=== PATIENT | female | born 1980 | race American Indian/Alaskan Native ===

== ENCOUNTER 2018-03-19 08:25 | Emergency (ER) | payer MEDICAID, OTHER ==
[2018-03-19 08:33] VITALS: BP 135/86
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
--- NOTE | 2018-03-19 10:08 | XRay Report ---
Left humerus 2 views: History: Left shoulder pain. Status post work injury. Findings: No fracture, lytic lesion or periosteal reaction or soft tissue calcification. Impression: Essentially negative left humerus.
--- NOTE | 2018-03-19 10:10 | XRay Report ---
Cervical spine 4 views: X. History: Status post work injury. Neck pain. Findings: Normal height of vertebral bodies. Normal height of intervertebral disc spaces. Sclerotic articular surfaces with early cervical spondylosis. No fracture. Normal prevertebral soft tissue. Impression: No evidence of acute fracture.
== END 2018-03-19 10:57 | disposition home or self-care (01) ==
LOC: ED 08:25
DX: S46.812A Strain of other muscles, fascia and tendons at shoulder and upper arm level, left arm, initial encounter (principal); J45.909 Unspecified asthma, uncomplicated; F17.200 Nicotine dependence, unspecified, uncomplicated; W20.8XXA Other cause of strike by thrown, projected or falling object, initial encounter; Y93.89 Activity, other specified; Y92.69 Other specified industrial and construction area as the place of occurrence of the external cause; Y99.8 Other external cause status
CPT/HCPCS: 72040; 99283

== ENCOUNTER 2019-01-01 10:19 | Emergency (ER) | payer SELFPAY ==
[2019-01-01 10:23] VITALS: BP 132/78
--- NOTE | 2019-01-01 10:39 | Emergency Department Report ---
ED Lower Extremity HPI - General Chief Complaint: Extremity Injury, Lower Stated Complaint: RT KNEE PAIN Time Seen by Provider: 01/01/19 10:33 Source: patient Mode of arrival: Ambulatory Limitations: Physical Limitation - History of Present Illness Initial Comments: Patient is a 38-year-old -Surinamese female who comes to the ER today with right knee pain. Her knee has hurt since yesterday. She states that she bent over and squatted to pick something up and when she stood up she had pain and swelling of the knee. She is ambulatory but with a limp. There is no other fall or trauma. She has never had this in the past. She is on no home medications. And denies any major medical problems. Patient reports an allergy to aspirin but she has taken Motrin numerous times here in the emergency room in the past. MD Complaint: knee injury -: Sudden, days(s) Injury: Knee: Right Place: home Severity: mild Improves With: nothing Worsens With: nothing Context: other (squat) Associated Symptoms: swelling - Related Data Previous Rx's Medication Instructions Recorded Last Taken Type Naproxen [Naprosyn] 500 mg PO BID PRN #20 tablet 01/01/19 Unknown Rx traMADol [Ultram] 50 mg PO Q6HR PRN #10 tablet 01/01/19 Unknown Rx Allergies Allergy/AdvReac Type Severity Reaction Status Date / Time aspirin Allergy Rash Verified 01/01/19 10:20 Penicillins Allergy Rash Verified 01/01/19 10:20 ED Review of Systems ROS: Stated complaint: RT KNEE PAIN Other details as noted in HPI Comment: All other systems reviewed and negative Constitutional: denies: see HPI Eyes: denies: eye pain ENT: denies: throat pain Respiratory: denies: cough Cardiovascular: denies: chest pain Endocrine: denies: intolerance to cold Gastrointestinal: denies: nausea Genitourinary: denies: as per HPI Musculoskeletal: as per HPI Skin: denies: rash Neurological: denies: headache Psychiatric: denies: depression Hematological/Lymphatic: denies: easy bleeding ED Past Medical Hx - Past Medical History Hx Asthma: Yes Additional medical history: Leukemia in remission,cancer survivor - Surgical History Additional Surgical History: port placed/removed - Family History Family history: no significant - Social History Smoking Status: Never Smoker Substance Use Type: Alcohol - Medications Home Medications: Home Medications Medication Instructions Recorded Confirmed Last Taken Type Naproxen [Naprosyn] 500 mg PO BID PRN #20 tablet 01/01/19 Unknown Rx traMADol [Ultram] 50 mg PO Q6HR PRN #10 tablet 01/01/19 Unknown Rx ED Physical Exam - General Limitations: Physical Limitation General appearance: alert - Head Head exam: Present: atraumatic - Eye Eye exam: Present: normal appearance, PERRL - Neck Neck exam: Present: normal inspection - Respiratory Respiratory exam: Present: normal lung sounds bilaterally - Cardiovascular Cardiovascular Exam: Present: regular rate - GI/Abdominal GI/Abdominal exam: Present: soft, normal bowel sounds - Rectal Rectal exam: Present: deferred - Extremities Exam Extremities exam: Present: normal inspection, full ROM - Expanded Lower Extremity Exam Right Upper Leg exam: Present: normal inspection Knee exam: Present: tenderness, swelling, effusion, full knee extension. Absent: abrasion, laceration, ecchymosis, deformity, crepidus, dislocation, erythema, pain w/ pronation/supination, posterior draw sign, pain/laxity with valgus, pain/laxity with varus Lower Leg exam: Present: normal inspection Neuro vascular tendon exam: Present: no vascular compromise Gait: Positive: observed and limited by pain - Back Exam Back exam: Present: normal inspection, full ROM - Neurological Exam Neurological exam: Present: alert, oriented X3, CN II-XII intact, normal gait - Psychiatric Psychiatric exam: Present: normal affect, normal mood - Skin Skin exam: Present: warm, dry, intact ED Course Vital Signs 01/01/19 10:22 Temperature 97.8 F Pulse Rate 89 Respiratory 18 Rate Blood Pressure 132/78 O2 Sat by Pulse 97 Oximetry ED Lower Extremity MDM - Radiology Data Radiology results: report reviewed, image reviewed - Medical Decision Making r knee effusion p squatting no fall or blunt trauma no bakers cyst ambulatory w limp pos effusion on exam. generalized swelling. RLE neurovasc intact Vss no lac or abrasion/ concern for septic knee/ infection knee immob and crutches to dec inflammation follow up with ortho nsaids for pain/comfort - Differential Diagnosis ro fx/ effusion Critical care attestation.: If time is entered above; I have spent that time in minutes in the direct care of this critically ill patient, excluding procedure time. ED Disposition Clinical Impression: Knee effusion, Knee pain Disposition: DC- TO HOME OR SELFCARE Is pt being admited?: No Does the pt Need Aspirin: No Condition: Stable Instructions: Knee Effusion (ED) Additional Instructions: knee immbolizer crutches follow up ortho next week referral below rest elevate med as ordered for inflammation Prescriptions: Naproxen [Naprosyn] 500 mg PO BID PRN #20 tablet PRN Reason: Pain traMADol [Ultram] 50 mg PO Q6HR PRN #10 tablet PRN Reason: Pain Referrals: PRIMARY CAREMD [Primary Care Provider] - 3-5 Days HENRY MARTINS MD [Staff Physician] - 3-5 Days Forms: Work/School Release Form(ED) Time of Disposition: 11:29
[2019-01-01] MEDS ORDERED: TORADOL IM ONE (11:28)
--- NOTE | 2019-01-01 11:30 | XRay Report ---
RIGHT KNEE, 3 views: History: Right knee pain. A small joint effusion is identified on the lateral image. The bony structures and joint spaces are unremarkable. IMPRESSION: Small knee effusion. Internal derangement is suspected, MRI could be obtained.
== END 2019-01-01 12:01 | disposition home or self-care (01) ==
LOC: ED 10:19
DX: M25.461 Effusion, right knee (principal); J45.909 Unspecified asthma, uncomplicated; Z88.6 Allergy status to analgesic agent; Z88.0 Allergy status to penicillin
CPT/HCPCS: 29505; 73562; 96372; 99283; J1885

== ENCOUNTER 2019-05-30 08:40 | Emergency (ER) | payer OTHER ==
[2019-05-30 09:03] VITALS: BP 140/91
[2019-05-30] MEDS ORDERED: TORADOL IM ONE (10:01)
[2019-05-30] MEDS ORDERED: DELTASONE PO ONE (10:01)
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
== END 2019-05-30 11:13 | disposition home or self-care (01) ==
LOC: ED 08:40
DX: S16.1XXA Strain of muscle, fascia and tendon at neck level, initial encounter (principal); J45.909 Unspecified asthma, uncomplicated; F17.200 Nicotine dependence, unspecified, uncomplicated; F12.10 Cannabis abuse, uncomplicated; Z88.6 Allergy status to analgesic agent; Z88.0 Allergy status to penicillin; W13.8XXA Fall from, out of or through other building or structure, initial encounter; Y93.89 Activity, other specified; Y92.59 Other trade areas as the place of occurrence of the external cause; Y99.8 Other external cause status
CPT/HCPCS: 96372; 99282; J1885; J7512

== ENCOUNTER 2019-09-02 09:08 | Emergency (ER) | payer OTHER ==
[2019-09-02 09:12] VITALS: BP 116/72
[2019-09-02] MEDS ORDERED: TORADOL IM ONE (09:33)
[2019-09-02] MEDS ORDERED: TORADOL ONE (09:36)
--- NOTE | 2019-09-02 09:39 | Emergency Department Report ---
ED Back Pain/Injury HPI - General Chief Complaint: Back Pain/Injury Stated Complaint: BACK PAIN EXTREME Time Seen by Provider: 09/02/19 09:33 Source: patient Limitations: No Limitations - History of Present Illness Initial Comments: Patient is 38 years old female with history of chronic back pain secondary to degenerative disc disease. Patient presented to the ER with acute exacerbation of her lower back pain. Patient denied any recent injury. She also denied any fever, weakness numbness or tingling sensation. No bowel or bladder incontinence. MD Complaint: back pain -: days(s) Similar Symptoms Previously: Yes Radiation: none - Related Data Previous Rx's Medication Instructions Recorded Last Taken Type Naproxen [Naprosyn] 500 mg PO BID PRN #20 tablet 01/01/19 Unknown Rx traMADol [Ultram] 50 mg PO Q6HR PRN #10 tablet 01/01/19 Unknown Rx Cyclobenzaprine [Flexeril] 10 mg PO QHS PRN #10 tablet 05/30/19 Unknown Rx Ibuprofen [Motrin] 600 mg PO Q8H PRN #20 tablet 05/30/19 Unknown Rx Allergies Allergy/AdvReac Type Severity Reaction Status Date / Time aspirin Allergy Rash Verified 01/01/19 10:20 Penicillins Allergy Rash Verified 01/01/19 10:20 ED Review of Systems ROS: Stated complaint: BACK PAIN EXTREME Other details as noted in HPI Comment: All other systems reviewed and negative Constitutional: denies: chills, fever Respiratory: denies: cough, shortness of breath, SOB with exertion Cardiovascular: denies: chest pain, palpitations Gastrointestinal: denies: abdominal pain, nausea, vomiting Musculoskeletal: back pain Neurological: denies: headache, weakness, numbness, paresthesias, confusion, abnormal gait, vertigo ED Past Medical Hx - Past Medical History Previous Medical History?: Yes Hx Asthma: Yes Additional medical history: Leukemia in remission,cancer survivor - Surgical History Past Surgical History?: Yes Additional Surgical History: port placed/removed - Social History Smoking Status: Never Smoker Substance Use Type: None - Medications Home Medications: Home Medications Medication Instructions Recorded Confirmed Last Taken Type Naproxen [Naprosyn] 500 mg PO BID PRN #20 tablet 01/01/19 Unknown Rx traMADol [Ultram] 50 mg PO Q6HR PRN #10 tablet 01/01/19 Unknown Rx Cyclobenzaprine [Flexeril] 10 mg PO QHS PRN #10 tablet 05/30/19 Unknown Rx Ibuprofen [Motrin] 600 mg PO Q8H PRN #20 tablet 05/30/19 Unknown Rx ED Physical Exam - General Limitations: No Limitations General appearance: alert, in no apparent distress - Head Head exam: Present: atraumatic, normocephalic, normal inspection - Eye Eye exam: Present: normal appearance - ENT ENT exam: Present: normal exam, normal orophraynx, mucous membranes moist - Neck Neck exam: Present: normal inspection, full ROM. Absent: tenderness, meningismus, lymphadenopathy, thyromegaly - Respiratory Respiratory exam: Present: normal lung sounds bilaterally - Cardiovascular Cardiovascular Exam: Present: regular rate, normal rhythm, normal heart sounds - GI/Abdominal GI/Abdominal exam: Present: soft. Absent: distended, tenderness - Extremities Exam Extremities exam: Present: normal inspection, full ROM, normal capillary refill. Absent: tenderness - Back Exam Back exam: Present: normal inspection, full ROM. Absent: tenderness, CVA tenderness (R), CVA tenderness (L), muscle spasm, paraspinal tenderness, vertebral tenderness - Neurological Exam Neurological exam: Present: alert, oriented X3, CN II-XII intact, normal gait. Absent: abnormal gait, motor sensory deficit - Psychiatric Psychiatric exam: Present: normal mood - Skin Skin exam: Present: warm, intact, normal color ED Course Vital Signs 09/02/19 09:10 Temperature 98.0 F Pulse Rate 65 Respiratory 16 Rate Blood Pressure 116/72 O2 Sat by Pulse 100 Oximetry Critical care attestation.: If time is entered above; I have spent that time in minutes in the direct care of this critically ill patient, excluding procedure time. ED Disposition Clinical Impression: Back pain Disposition: DC-01 TO HOME OR SELFCARE Is pt being admited?: No Condition: Stable Instructions: Back Pain (ED) Referrals: [facility] [Provider Group] - 3-5 Days
== END 2019-09-02 09:47 | disposition home or self-care (01) ==
LOC: ED 09:08
DX: M54.5 Low back pain (principal); G89.29 Other chronic pain; J45.909 Unspecified asthma, uncomplicated; Z88.0 Allergy status to penicillin; Z88.6 Allergy status to analgesic agent; Z79.899 Other long term (current) drug therapy
CPT/HCPCS: 96372; 99282; J1885

== ENCOUNTER 2019-10-29 22:49 | Inpatient (IN) | payer OTHER ==
[2019-10-30 02:49] LABS: Bacteria,Urine 1+ /HPF (Negative); Bilirubin,Urine NEG (Negative); Blood,Urine SM (Negative); Color,Urine Yellow (Yellow); Mucus,Urine FEW /HPF; Protein,Urine <15 mg/dL mg/dL (Negative); Urobilinogen,Urine < 2.0 mg/dL (<2.0)
[2019-10-30 03:25] LABS: Basophils % (Auto) 0.2 % (0.0-1.8); Eosinophils % (Auto) 0.1 % (0.0-4.3); Hematocrit 37.5 % (30.3-42.9); Hemoglobin 13.1 gm/dl (10.1-14.3); Lymphocytes % (Auto) 17.9 % (13.4-35.0); Mean Corpuscular HGB Conc 35 % (30-34); Mean Corpuscular Volume 96 fl (79-97); Monocytes # (Auto) 0.6 K/mm3 (0.0-0.8); Platelet Count 159 K/mm3 (140-440); Red Blood Count 3.91 M/mm3 (3.65-5.03); Red Cell Distribution Width 13.1 % (13.2-15.2)
[2019-10-30 03:48] LABS: Alanine Aminotransferase 18 units/L (7-56); Albumin 4.5 g/dL (3.9-5); BUN/Creatinine Ratio 13; Blood Urea Nitrogen 8 mg/dL (7-17); Calcium 9.4 mg/dL (8.4-10.2); Hemolysis Index 9
[2019-10-30] MEDS ORDERED: MORPHINE 4 MG/1 ML INJ IV ONE (04:26)
[2019-10-30] MEDS ORDERED: ONDANSETRON 4 MG/2 ML INJ IV ONE ×2 (04:26→06:30)
[2019-10-30] MEDS ORDERED: SODIUM CHLORIDE 0.9% 1000 ML 1,000 ML IV ONE ×2 (04:27→06:30)
--- NOTE | 2019-10-30 05:52 | Cat Scan Report ---
CT of the abdomen and pelvis with contrast INDICATION: Abdominal pain with nausea and vomiting COMPARISON: None FINDINGS: Lung bases are clear. Liver, spleen, pancreas, adrenal glands and kidneys show no abnormali ties. No definite gallbladder or biliary tree abnormality. No fluid or adenopathy in the upper abdome n. CT of the pelvis shows an umbilical hernia containing fat. No uterine or adnexal masses. No free pelv ic fluid. The tip the appendix contains an appendicolith or linear foreign body and is enlarged at 1. 5 cm. There is no definite surrounding inflammation however. No perforation is seen. No pelvic or ing uinal adenopathy. No bowel obstruction or enteritis. IMPRESSION: Thickened appendix without surrounding inflammation so the finding is equivocal. Otherwis e negative study. Automated exposure control was utilized to diminish radiation dose. Signer Name: Gary Schwartz MD Signed: 10/30/2019 5:47 AM Workstation Name: [id number]
--- NOTE | 2019-10-30 06:17 | Emergency Department Report ---
<DEMETRIA HILL - Last Filed: 10/30/19 06:13> ED Abdominal Pain HPI - General Chief Complaint: Abdominal Pain Stated Complaint: FEVER; ABD PAIN Source: patient Mode of arrival: Ambulatory Limitations: No Limitations - History of Present Illness Initial Comments: Patient is a 39-year-old [place] female with a remote history of acute myelogenous leukemia in remission who presents to the ED with no acute onset persistent severe right lower quadrant pain with nausea and vomiting and subjective fever and chills for the last 2 days. Patient states that she'll been taking [id number] medications with no relief. Patient denies dizziness, syncope, dysuria, urinary frequency and urgency, chest pain, shortness of breath, vaginal bleeding, vaginal discharge, back pain, hematuria, or cough and syncope MD Complaint: abdominal pain, other (nausea and vomiting; fever and chills) -: Sudden, days(s) (2) Location: RLQ Radiation: RLQ Migration to: no migration Severity: severe Severity scale (0 -10): 10 Quality: aching, sharp Consistency: intermittent Improves With: nothing Worsens With: movement Associated Symptoms: denies other symptoms, nausea, vomiting, anorexia. denies: diarrhea, fever, chills, constipation, dysuria, hematemesis, hematochezia, melena, hematuria, syncope Treatments Prior to Arrival: NSAIDs - Related Data LMP Date: 10/26/19 Previous Rx's Medication Instructions Recorded Last Taken Type Cyclobenzaprine [Flexeril 10 MG 10 mg PO QHS PRN #10 tablet 05/30/19 Unknown Rx TAB] Docusate Sodium [Colace] 100 mg PO BID PRN #14 capsule 10/31/19 Unknown Rx Simethicone [Gas-X] 62.5 mg PO BID PRN #20 strip 10/31/19 Unknown Rx oxyCODONE /ACETAMINOPHEN [Percocet 1 tab PO Q8H PRN #6 tablet 10/31/19 Unknown Rx 5/325 mg] Allergies Allergy/AdvReac Type Severity Reaction Status Date / Time Penicillins Allergy Hives Verified 10/29/19 23:00 ED Review of Systems Constitutional: chills, fever, malaise, weakness Eyes: denies: eye pain, eye discharge, vision change ENT: denies: ear pain, throat pain Respiratory: denies: cough, shortness of breath, wheezing Cardiovascular: denies: chest pain, palpitations Endocrine: no symptoms reported Gastrointestinal: abdominal pain, nausea, vomiting. denies: diarrhea Genitourinary: denies: urgency, dysuria, discharge Musculoskeletal: denies: back pain, joint swelling, arthralgia Skin: denies: rash, lesions Neurological: denies: headache, weakness, paresthesias Psychiatric: denies: anxiety, depression Hematological/Lymphatic: denies: easy bleeding, easy bruising ED Past Medical Hx - Past Medical History Previous Medical History?: Yes Hx of Cancer: Yes (Leukemia) Hx Asthma: Yes Additional medical history: Leukemia in remission,cancer survivor - Surgical History Past Surgical History?: Yes Additional Surgical History: port placed/removed, Tubal Ligation - Social History Smoking Status: Never Smoker Substance Use Type: None - Medications Home Medications: Home Medications Medication Instructions Recorded Confirmed Last Taken Type Cyclobenzaprine [Flexeril 10 MG 10 mg PO QHS PRN #10 tablet 05/30/19 10/30/19 Unknown Rx TAB] Docusate Sodium [Colace] 100 mg PO BID PRN #14 capsule 10/31/19 Unknown Rx Simethicone [Gas-X] 62.5 mg PO BID PRN #20 strip 10/31/19 Unknown Rx oxyCODONE /ACETAMINOPHEN [Percocet 1 tab PO Q8H PRN #6 tablet 10/31/19 Unknown Rx 5/325 mg] ED Physical Exam - General Limitations: No Limitations General appearance: alert, in no apparent distress - Head Head exam: Present: atraumatic, normocephalic, normal inspection - Eye Eye exam: Present: normal appearance, PERRL, EOMI Pupils: Present: normal accommodation - ENT ENT exam: Present: normal exam, normal orophraynx, mucous membranes moist, TM's normal bilaterally, normal external ear exam - Neck Neck exam: Present: normal inspection, full ROM. Absent: tenderness - Respiratory Respiratory exam: Present: normal lung sounds bilaterally. Absent: respiratory distress, wheezes, rales, rhonchi, chest wall tenderness, accessory muscle use, decreased breath sounds - Cardiovascular Cardiovascular Exam: Present: normal rhythm, tachycardia, normal heart sounds. Absent: systolic murmur, diastolic murmur, rubs, gallop - GI/Abdominal GI/Abdominal exam: Present: soft, tenderness (palpable right lower quadrant tenderness with guarding and rebound), guarding, rebound, normal bowel sounds. Absent: hyperactive bowel sounds, mass, pulsatile mass - Extremities Exam Extremities exam: Present: normal inspection, full ROM, normal capillary refill - Back Exam Back exam: Present: normal inspection, full ROM. Absent: CVA tenderness (L), muscle spasm, paraspinal tenderness - Neurological Exam Neurological exam: Present: alert, oriented X3, CN II-XII intact, normal gait, reflexes normal - Psychiatric Psychiatric exam: Present: normal affect, normal mood - Skin Skin exam: Present: warm, dry, intact, normal color. Absent: rash ED Medical Decision Making - Lab Data Result diagrams: 10/30/19 02:36 10/30/19 02:36 - Radiology Data Radiology results: report reviewed, image reviewed Findings [address] [address] Cat Scan Report Signed Patient: GEOFF ROE MR#: [id number] : 12/28/1979 Acct:[id number] Age/Sex: 39 / F ADM Date: 10/29/19 Loc: ED Attending Dr: Ordering Physician: PALOMA FRANKEL Date of Service: 10/30/19 Procedure(s): CT abdomen pelvis w con Accession Number(s): [id number] cc: PALOMA FRANKEL CT of the abdomen and pelvis with contrast INDICATION: Abdominal pain with nausea and vomiting COMPARISON: None FINDINGS: Lung bases are clear. Liver, spleen, pancreas, adrenal glands and kidneys show no abnormalities. No definite gallbladder or biliary tree abnormality. No fluid or adenopathy in the upper abdomen. CT of the pelvis shows an umbilical hernia containing fat. No uterine or adnexal masses. No free pelvic fluid. The tip the appendix contains an appendicolith or linear foreign body and is enlarged at 1.5 cm. There is no definite surrounding inflammation however. No perforation is seen. No pelvic or inguinal adenopathy. No bowel obstruction or enteritis. IMPRESSION: Thickened appendix without surrounding inflammation so the finding is equivocal. Otherwise negative study. Automated exposure control was utilized to diminish radiation dose. Signer Name: Gary Schwartz MD Signed: 10/30/2019 5:47 AM Workstation Name: [id number] Transcribed By: GHASSAN Dictated By: Gary Schwartz MD Electronically Authenticated By: Gary Schwartz MD Signed Date/Time: 10/30/19546 DD/ 0 TD/TT: - Medical Decision Making This is a 39-year-old [place] female with a history of acute myelogenous leukemia in remission who presented to the ED with complaint of acute onset persistent severe right lower quadrant pain, subjective fever and chills and nausea and vomiting. In the ED, patient is alert and oriented 3 additional treatment and distress but tachycardic in triage. Lab test results were reviewed and are all nonactionable including urinalysis. Abdomen pelvis CT scan with contrast shows the tip the appendix that contains an appendicolith or linear foreign body and is enlarged at 1.5 cm. There is no definite surrounding inflammation however. No perforation is seen. No pelvic or inguinal adenopathy. No bowel obstruction or enteritis. These findings were discussed with the ED attending physician Dr. Plummer who advised that this general surgeon phonograph needle tip maker be consulted with the CT report. I paged and discussed the patient's case with the general surgeon phonograph needle tip maker Dr. Macedo who advised the patient to be admitted to medicine and be kept nothing by mouth and she shall consult on the patient and possibly take her to the OR for appendectomy. The patient's case was then discussed with the hospitalist physician phonograph needle tip maker Dr. Contreras who admitted the patient to the hospital. ED bridge orders were also initiated in the ED to expedite the patient care. - Differential Diagnosis acute appendicitis; UTI; Pyelonephritis; Ovarian cyst; Ovarian torsion ED Disposition Clinical Impression: Acute appendicitis Qualifiers: Acute appendicitis type: unspecified acute appendicitis type Qualified Code(s): K35.80 - Unspecified acute appendicitis Disposition: OP ADMIT IP TO THIS HOSP Is pt being admited?: Yes Does the pt Need Aspirin: Yes Condition: Stable Time of Disposition: 06:15 <MARINO PLUMMER P - Last Filed: 11/07/19 23:56> ED Review of Systems ROS: Stated complaint: FEVER; ABD PAIN Other details as noted in HPI ED Course Vital Signs 10/29/19 10/30/19 10/30/19 23:07 04:38 05:08 Temperature 99.2 F Pulse Rate 106 H Respiratory 20 18 18 Rate Blood Pressure 145/103 Blood Pressure [Right] O2 Sat by Pulse 98 Oximetry 10/30/19 10/30/1919 06:16 06:45 07:15 Temperature 99.3 F Pulse Rate 116 H Respiratory 18 18 18 Rate Blood Pressure Blood Pressure 120/93 [Right] O2 Sat by Pulse 97 Oximetry 10/30/19 10/30/19 10/30/19 07:48 10:01 10:23 Temperature 99.8 F H Pulse Rate 81 Respiratory 20 18 18 Rate Blood Pressure 132/79 Blood Pressure [Right] O2 Sat by Pulse 97 97 Oximetry ED Medical Decision Making - Lab Data Result diagrams: 10/31/19 05:26 10/31/19 05:26 - Medical Decision Making Attestation: Available for consultation Critical care attestation.: If time is entered above; I have spent that time in minutes in the direct care of this critically ill patient, excluding procedure time. ED Disposition Is pt being admited?: Yes
[2019-10-30] MEDS ORDERED: metroNIDAZOLE/NS 500 MG/100 ML 500 MG/100 ML BAG IV ONE (06:30)
[2019-10-30] MEDS ORDERED: HYDROmorphone 1 MG/1 ML INJ IV ONE (06:30)
--- NOTE | 2019-10-30 09:36 | History and Physical Report ---
History of Present Illness Date of examination: 10/30/19 Date of admission: 10/30/19 06:32 Chief complaint: Nausea vomiting abdominal pain History of present illness: 39-year-old [place] female patient with history of acute myelogenous leukemia in remission for many years who presents to the ED with no acute onset persistent severe right lower quadrant pain with nausea and vomiting and subjective fever and chills for the last 2 days. Patient states that she'll been taking [id number] medications with no relief. Patient denies urinary or laboratory equipment cleaner symptoms . Past History Past Medical History: No medical history Past Surgical History: Social history: denies: smoking, alcohol abuse, prescription drug abuse Family history: hypertension Medications and Allergies Allergies Allergy/AdvReac Type Severity Reaction Status Date / Time Penicillins Allergy Hives Verified 10/29/19 23:00 Home Medications Medication Instructions Recorded Confirmed Last Taken Type Cyclobenzaprine [Flexeril] 10 mg PO QHS PRN #10 tablet 05/30/19 10/30/19 Unknown Rx Review of Systems Constitutional: no weight loss, no weight gain Ears, nose, mouth and throat: no nasal congestion, no nasal discharge Cardiovascular: no chest pain, no lightheadedness, no shortness of breath Respiratory: no cough with sputum, no hemoptysis Gastrointestinal: abdominal pain, nausea, vomiting Musculoskeletal: no myalgias, no arthritis Integumentary: no rash, no lesions Neurological: no seizures, no syncope Psychiatric: no anxiety, no depression Endocrine: no cold intolerance, no heat intolerance Hematologic/Lymphatic: no easy bruising, no easy bleeding Allergic/Immunologic: no urticaria, no allergic rhinitis Exam - Constitutional Vitals: Temp Pulse Resp BP Pulse Ox 99.3 F 116 H 20 120/93 97 10/30/19 06:16 10/30/19 06:16 10/30/19 07:48 10/30/19 06:16 10/30/19 07:48 General appearance: Present: mild distress, well-nourished, obese - Neck Neck: Present: supple, normal ROM - Respiratory Respiratory effort: normal Respiratory: bilateral: diminished, negative: rales, rhonchi, wheezing - Cardiovascular Rhythm: regular Heart Sounds: Present: S1 & S2 - Extremities Extremities: no ischemia, No edema - Abdominal General gastrointestinal: Present: soft, tender (No guarding no rigidity), non- distended, normal bowel sounds - Integumentary Integumentary: Present: clear, warm - Musculoskeletal Musculoskeletal: strength equal bilaterally, generalized weakness - Psychiatric Psychiatric: appropriate mood/affect, cooperative - Neurologic Neurologic: moves all extremities Results - Labs CBC & Chem 7: 10/30/19 02:36 10/30/19 02:36 Labs: Abnormal lab results 10/30/19 10/30/19 Range/Units 02:36 02:36 MCH 34 H (28-32) pg MCHC 35 H (30-34) % RDW 13.1 L (13.2-15.2) % [place] % (Auto) 11.0 H (0.0-7.3) % Lymph # 1.0 L (1.2-5.4) K/mm3 Seg Neutrophils % 70.8 H (40.0-70.0) % Sodium 135 L (137-145) mmol/L Creatinine 0.6 L (0.7-1.2) mg/dL Glucose 101 H (65-100) mg/dL Assessment and Plan --Possible acute appendicitis; Thickened appendix on CT scan N.p.o. status, IV fluids, empiric antibiotics Follow cultures, surgery evaluation For possible surgical intervention --Obesity; BMI 33.1 Patient needs weight reduction once medically stable --Mild hyponatremia; IV normal saline, monitor electrolytes --DVT prophylaxis; SCDs No pharmacologic anticoagulation pending possible procedure Monitor closely and adjust management as needed Follow surgery evaluation recommendations Plan of care reviewed with the patient and her nurse I spent 50 minutes coordinating this admission
[2019-10-30] MEDS ORDERED: MORPHINE 2 MG/1 ML INJ ONE (09:57)
[2019-10-30] MEDS: MORPHINE 2 MG/1 ML INJ IV PRN ×2 (10:01→13:36)
--- NOTE | 2019-10-30 10:55 | Consultation ---
History of Present Illness Consult date: 10/30/19 Reason for consult: abdominal pain Chief complaint: abdominal pain - History of present illness History of present illness: 39 year old female presented to the ED with a 2 day history of 10/10 right lower quadrant pain with nausea and vomiting. She says she noticed some abdominal discomfort about 1-2 weeks ago. She has never had this pain before. CT scan shows a thickened appendix with a fecalith. no obvious abscess or perforation. Past History Past Medical History: No medical history Past Surgical History: Social history: single Medications and Allergies Allergies Allergy/AdvReac Type Severity Reaction Status Date / Time Penicillins Allergy Hives Verified 10/29/19 23:00 Home Medications Medication Instructions Recorded Confirmed Last Taken Type Naproxen [Naprosyn] 500 mg PO BID PRN #20 tablet 01/01/19 Unknown Rx traMADoL [Ultram] 50 mg PO Q6HR PRN #10 tablet 01/01/19 Unknown Rx Cyclobenzaprine [Flexeril] 10 mg PO QHS PRN #10 tablet 05/30/19 Unknown Rx Ibuprofen [Motrin] 600 mg PO Q8H PRN #20 tablet 05/30/19 Unknown Rx Ondansetron [Zofran Odt] 4 mg PO Q8HR PRN #14 tab.rapdis 09/02/19 Unknown Rx traMADoL [Ultram 50 MG tab] 50 mg PO Q4HR PRN #14 tablet 09/02/19 Unknown Rx Active Meds: Active Medications Levofloxacin/Dextrose (Levaquin 750mg/150ml) 750 mg in 150 mls @ 100 mls/hr IV Q24H UDAY; Protocol Sodium Chloride (Nacl 0.9% 1000 Ml) 1,000 mls @ 125 mls/hr IV DIRECT UDAY Morphine Sulfate (Morphine) 2 mg IV Q4H PRN PRN Reason: Pain, Moderate (4-6) Last Admin: 10/30/19 10:01 Dose: 2 mg Documented by: Review of Systems - Respiratory no shortness of breath - Gastrointestinal abdominal pain, nausea, vomiting Exam Vital Signs Temp Pulse Resp BP Pulse Ox 99.2 F 106 H 20 145/103 98 10/29/19 23:07 10/29/19 23:07 10/29/19 23:07 10/29/19 23:07 10/29/19 23:07 - General physical appearance Positive: well developed, no distress, obese - Respiratory Positive: normal expansion, normal respiratory effort - Extremities Extremities: no ischemia - Abdomen Abdomen: Present: soft (obese, tender to palpation in the per-umbilical and right lower quadrant, guarding, no rebound) Results - Labs 10/30/19 02:36 10/30/19 02:36 Abnormal lab results 10/30/19 10/30/19 Range/Units 02:36 02:36 MCH 34 H (28-32) pg MCHC 35 H (30-34) % RDW 13.1 L (13.2-15.2) % [place] % (Auto) 11.0 H (0.0-7.3) % Lymph # 1.0 L (1.2-5.4) K/mm3 Seg Neutrophils % 70.8 H (40.0-70.0) % Sodium 135 L (137-145) mmol/L Creatinine 0.6 L (0.7-1.2) mg/dL Glucose 101 H (65-100) mg/dL Diabetes panel 10/30/19 Range/Units 02:36 Sodium 135 L (137-145) mmol/L Potassium 3.9 (3.6-5.0) mmol/L Chloride 98.8 (98-107) mmol/L Carbon Dioxide 22 (22-30) mmol/L BUN 8 (7-17) mg/dL Creatinine 0.6 L (0.7-1.2) mg/dL Glucose 101 H (65-100) mg/dL Calcium 9.4 (8.4-10.2) mg/dL AST 23 (5-40) units/L ALT 18 (7-56) units/L Alkaline Phosphatase 61 (35-129) units/L Total Protein 8.2 (6.3-8.2) g/dL Albumin 4.5 (3.9-5) g/dL Calcium panel 10/30/19 Range/Units 02:36 Calcium 9.4 (8.4-10.2) mg/dL Albumin 4.5 (3.9-5) g/dL Pituitary panel 10/30/19 Range/Units 02:36 Sodium 135 L (137-145) mmol/L Potassium 3.9 (3.6-5.0) mmol/L Chloride 98.8 (98-107) mmol/L Carbon Dioxide 22 (22-30) mmol/L BUN 8 (7-17) mg/dL Creatinine 0.6 L (0.7-1.2) mg/dL Glucose 101 H (65-100) mg/dL Calcium 9.4 (8.4-10.2) mg/dL Adrenal panel 10/30/19 Range/Units 02:36 Sodium 135 L (137-145) mmol/L Potassium 3.9 (3.6-5.0) mmol/L Chloride 98.8 (98-107) mmol/L Carbon Dioxide 22 (22-30) mmol/L BUN 8 (7-17) mg/dL Creatinine 0.6 L (0.7-1.2) mg/dL Glucose 101 H (65-100) mg/dL Calcium 9.4 (8.4-10.2) mg/dL Total Bilirubin 0.40 (0.1-1.2) mg/dL AST 23 (5-40) units/L ALT 18 (7-56) units/L Alkaline Phosphatase 61 (35-129) units/L Total Protein 8.2 (6.3-8.2) g/dL Albumin 4.5 (3.9-5) g/dL - Imaging CT scan - abdomen: report reviewed, image reviewed CT scan - pelvis: report reviewed, image reviewed Assessment and Plan Abnormal appendix with fecalith associated with RLQ pain. appendicitis likely. low grade fever, stable. Discussed with patient that with visible fecalith, appendiceal inflammation may not resolve with abx and observation. She agrees to laparoscopic appendectomy. Will schedule for today.
[2019-10-30] MEDS: SODIUM CHLORIDE 0.9% 1000 ML 1,000 ML IV SCH ×2 (11:14→17:33)
--- NOTE | 2019-10-30 13:21 | Anesthesia Consultation ---
Anesthesia Consult and Med Hx Date of service: 10/30/19 - Airway Anesthetic Teeth Evaluation: Good ROM Head & Neck: Adequate Mental/Hyoid Distance: Adequate Mallampati Class: Class II Intubation Access Assessment: Good - Pulmonary Exam CTA: Yes - Cardiac Exam Cardiac Exam: RRR - Pre-Operative Health Status ASA Pre-Surgery Classification: ASA2 Proposed Anesthetic Plan: General (Asthma) - Pulmonary Hx Asthma: Yes Hx Pneumonia: No
[2019-10-30] MEDS ORDERED: HYDROmorphone 1 MG/1 ML INJ IV PRN (13:22)
--- NOTE | 2019-10-30 13:22 | Anesthesia Day of Surgery ---
Anesthesia Day of Surgery - Day of Surgery Patient Examined: Yes Patient H&P Reviewed: Yes Patient is NPO: Yes
[2019-10-30] MEDS: ALBUTEROL 2.5 MG/3 ML NEBU IH SCH ×3 (13:56→20:54)
[2019-10-30] MEDS ORDERED: LIDOCAINE (1%) 10 MG/1 ML VIAL 20 ML MDV ONE (14:49)
[2019-10-30] MEDS ORDERED: BUPIVACAINE/PF (0.5%) 5 MG/1 ML 30 ML VIAL INFILTRATI ONE ×2 (14:50→15:53)
--- NOTE | 2019-10-30 14:55 | Operative Report ---
Operative Report Operative Report: DATE: 10/30/2019 SURGEON: JIMBO PAN MD INTERPRETER FOR THE DEAF:HEATH AYON DO PRE-OP DX: ACUTE APPENDICITIS POST-OP DX: ACUTE APPENDICITIS PROCEDURE: LAPAROSCOPIC APPENDECTOMY INDICATION: 39 YEAR OLD FEMALE PRESENTED TO ED WITH RLQ PAIN. CT SCAN SHOWED A DILATED APPENDIX WITH FECALITH. SHE AGREED TO AND WAS CONSENTED TO LAP APPENDECTOMY AND EXPRESSED UNDERSTANDING OF THE RISKS AND BENEFITS. COMPLICATIONS: NONE IMMEDIATE EBL: <5ML FINDINGS: NON PERFORATED, NON PURULENT, APPENDICITIS SPECIMEN: APPENDIX DETAILS OF PROCEDURE: PT WAS BROUGHT INTO OR SUITE AND LAID IN SUPINE POSITION. BILATERAL LOWER EXTREMITY SCD WERE PLACED. GENERAL ANESTHESIA WAS INDUCED VIA SUCCESSFUL ENDOTRACHEAL INTUBATION. A DAVISON CATHETER WAS INSERTED UNDER STERILE CONDITIONS. HER ABDOMEN WAS PREPPED AND DRAPED IN STERILE FASHION WITH HER LEFT ARM TUCKED AT HER SIDE. A STAB INCISION WAS PLACED AT THE UMBILICUS AND A VERESS NEEDLE WAS USED TO INSUFLATE THE ABDOMEN TO A PRESSURE OF 15MM HG. AFTER THIS USING OPTIVIEW TECHNIQUE, A 5MM TROCAR WAS PLACED INTO THE ABDOMINAL CAVITY. THERE WAS NO GROSS INJURY TO INTRA-ABDOMINAL STRUCTURES. TWO WORKING TROCARS WERE PLACED, A 5MM IN THE SUPRA PUBIC AREA, AND A 10MM IN THE LEFT SIDE AT THE LEVEL OF THE UMBILICUS. BOTH UNDER DIRECT VISUALIZATION. THERE WAS A FATTY DRAPE OF OMENTUM THAT WAS PROHIBITING ADEQUATE AND SAFE VISUALIZATION AND ACCESS TO THE RLQ, AN ADDITIONAL 5MM TROCAR WAS PLACED IN THE LUQ TO FACILITATE USING A LIGASURE TO TAKE DOWN THE FATTY TISSUE THAT WAS ADHERED TO THE ANTERIOR ABDOMINAL WALL AT THE UMBILICUS. ONCE THAT WAS COMPLETE,THE APPENDIX WAS LOCALIZED WITH THE TIP IN THE LATERAL MARGARITO-COLIC GUTTER. IT WAS MEDIALIZED AND SEEN TO BE GROSSLY DILATED AT THE TIP, WITH INCREASED ERYTHEMA CONSISTENT WITH APPENDICITIS. THERE WERE NO SIGNS OF PERFORATION, ABSCESS, OR FREE FLUID. THE APPENDIX WAS TRANSECTED AT ITS BASE WITH A WHITE LOAD ON AN ENDOSCOPIC STAPLER. THE MESO APPENDIX WITH A LIGASURE DEVICE. THE STAPLE LINE WAS INSPECTED AND FOUND TO BE HEMOSTATICALLY SOUND. THE APPENDIX WAS THEN PLACED IN AN ENDO CATCH BAG AND RETRIEVED FROM THE LEFT SIDED 10MM PORT. THIS TROCAR WAS THEN CLOSED AT THE FASCIAL LAYER WITH A BERNARD JAZZY DEVICE. THE ABDOMEN WAS DESUFLATED, AND ALL SKIN INCISIONS WERE CLOSED WITH 4-O MONOCRYL FOLLOWED BY DERMABOND. THE PATIENT WAS EXTUBATED, AWOKEN AND TAKEN TO RECOVERY IN STABLE CONDITION. ALL COUNTS WERE CORRECT. LOCAL ANESTHESIA USING 50/20 MARCAINE/LIDOCAINE WAS USED AT ALL INCISIONS PRIOR TO CUTTING THE SKIN.
[2019-10-30] MEDS ORDERED: fentaNYL 100 MCG/2 ML INJ ONE (14:56)
[2019-10-30] MEDS ORDERED: ROCURONIUM 50 MG/5 ML INJ IV ONE (14:57)
[2019-10-30] MEDS ORDERED: LIDOCAINE MPF (2%) 20 MG/1 ML VIAL 5 ML ONE (14:57)
[2019-10-30] MEDS ORDERED: PROPOFOL 200 MG/20 ML VIAL IV ONE (14:57)
[2019-10-30] MEDS ORDERED: HYDROmorphone 1 MG/1 ML INJ ONE ×2 (15:52→16:48)
[2019-10-30] MEDS ORDERED: LIDOCAINE (1%) 10 MG/1 ML VIAL 20 ML MDV INFILTRATI ONE (15:53)
[2019-10-30] MEDS ORDERED: WATER FOR IRRIG STERILE 1,500 ML BOTTLE IR ONE (15:53)
[2019-10-30] MEDS ORDERED: SODIUM CHLORIDE 0.9% IRR 1,500 ML BOTTLE IR ONE (15:53)
[2019-10-30] MEDS ORDERED: dexAMETHasone 20 MG/5 ML VIAL ONE (16:00)
[2019-10-30] MEDS ORDERED: GLYCOPYRROLATE 0.4 MG/2 ML INJ ONE (16:18)
[2019-10-30] MEDS ORDERED: NEOSTIGMINE 10MG/10 ML INJ MDV ONE (16:18)
[2019-10-30] MEDS ORDERED: LACTATED RINGERS 1,000 ML ONE (16:36)
[2019-10-30] MEDS ORDERED: ONDANSETRON 4 MG/2 ML INJ ONE (16:36)
--- NOTE | 2019-10-30 17:21 | Post Anesthesia Evaluation ---
- Post Anesthesia Evaluation Patient Participated: Yes Airway Patent: Yes Stable Respiratory Function: Yes Nausea/Vomiting: No Temp > 96.8F: Yes Pain Manageable: Yes Adequeate Hydration: Yes Anesthesia Complications: No Block Receding Appropriately: Not Applicable Patient on Ventilator: No
[2019-10-30] MEDS ORDERED: ZOLPIDEM 5 MG TAB PO PRN (17:29)
[2019-10-30] MEDS ORDERED: ONDANSETRON 4 MG/2 ML INJ IV PRN (18:25)
[2019-10-30] MEDS: oxyCODONE /ACETAMINOPHEN 5-325MG TAB PO PRN (18:39)
[2019-10-31] MEDS: oxyCODONE /ACETAMINOPHEN 5-325MG TAB PO PRN (01:21)
[2019-10-31 05:45] LABS: Hematocrit 36.2 % (30.3-42.9); Hemoglobin 12.2 gm/dl (10.1-14.3)
[2019-10-31 06:06] LABS: BUN/Creatinine Ratio 14; Blood Urea Nitrogen 7 mg/dL (7-17); Calcium 8.7 mg/dL (8.4-10.2); Hemolysis Index 6
[2019-10-31] MEDS: ALBUTEROL 2.5 MG/3 ML NEBU IH SCH ×3 (09:39→16:47)
--- NOTE | 2019-10-31 09:41 | Progress Note ---
Assessment and Plan POD#1 s/p uncomplicated lap appy. afebrile, stable tolerating PO. pain is controlled. can d/c home. call office to followup in 2 weeks. [phone] can shower and and advance diet as tolerated. no maintenance required for dressings, will fall of on their own. Subjective Date of service: 10/31/19 Patient Reports: Positive: feels better, tolerating liquids well (no acute events overnight.) Objective Vital Signs - 12hr 10/30/19 10/31/19 10/31/19 23:56 01:21 02:21 Temperature 97.4 F L Pulse Rate 84 Respiratory 18 17 16 Rate Blood Pressure 114/86 O2 Sat by Pulse 94 Oximetry 10/31/19 10/31/19 05:24 07:39 Temperature 97.4 F L 97.1 F L Pulse Rate 54 L 62 Respiratory 18 20 Rate Blood Pressure 106/59 149/99 O2 Sat by Pulse 94 99 Oximetry - General physical appearance well developed, well nourished, no distress, obese - Respiratory normal expansion, normal respiratory effort - Abdomen soft (abdomen incisions c/d/i, appropriatley tender to palpation) - Labs 10/31/19 05:26 10/31/19 05:26 Diabetes panel 10/31/19 Range/Units 05:26 Sodium 138 (137-145) mmol/L Potassium 4.4 (3.6-5.0) mmol/L Chloride 104.4 (98-107) mmol/L Carbon Dioxide 23 (22-30) mmol/L BUN 7 (7-17) mg/dL Creatinine 0.5 L (0.7-1.2) mg/dL Glucose 120 H (65-100) mg/dL Calcium 8.7 (8.4-10.2) mg/dL Calcium panel 10/31/19 Range/Units 05:26 Calcium 8.7 (8.4-10.2) mg/dL Pituitary panel 10/31/19 Range/Units 05:26 Sodium 138 (137-145) mmol/L Potassium 4.4 (3.6-5.0) mmol/L Chloride 104.4 (98-107) mmol/L Carbon Dioxide 23 (22-30) mmol/L BUN 7 (7-17) mg/dL Creatinine 0.5 L (0.7-1.2) mg/dL Glucose 120 H (65-100) mg/dL Calcium 8.7 (8.4-10.2) mg/dL Adrenal panel 10/31/19 Range/Units 05:26 Sodium 138 (137-145) mmol/L Potassium 4.4 (3.6-5.0) mmol/L Chloride 104.4 (98-107) mmol/L Carbon Dioxide 23 (22-30) mmol/L BUN 7 (7-17) mg/dL Creatinine 0.5 L (0.7-1.2) mg/dL Glucose 120 H (65-100) mg/dL Calcium 8.7 (8.4-10.2) mg/dL
[2019-10-31] MEDS ORDERED: PANTOPRAZOLE 40 MG INJ IV SCH (10:00)
[2019-10-31] MEDS: MORPHINE 2 MG/1 ML INJ IV PRN (10:12)
[2019-10-31] MEDS ORDERED: MAGNESIUM HYDROXIDE (MOM) ORAL LIQD UDC PO ONE (11:31)
--- NOTE | 2019-10-31 11:37 | Discharge Summary ---
Providers - Providers Date of Admission: 10/30/19 06:32 Date of discharge: 10/31/19 Attending physician: MO REBOLLAR 10/30/19 06:13 Consult to Physician [CONS] Stat Comment: PALOMA Marmolejo spoke with Dr. 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 Patient states that she'll been taking [id number] medications with no relief. Patient denies urinary or osteopathy doctor symptoms .CT scan Abd thickened appendix. Evaluated by surgeon and had lap appendectomy.Symptoms improved. Today patient is comfortable,no ew complaints,vital signs stable. Physical exam is unremarkable. Stable at discharge Discharge Diagnosis: --acute appendicitis;S/P appendectomy Surgery advanced diet to full liquids Cleared for discharge --Constipation; milk of magnesia Dulcolax suppository, patient complains of abdominal discomfort --Obesity; BMI 33.1 Patient needs weight reduction once medically stable --Mild hyponatremia; IV normal saline, monitor electrolytes --DVT prophylaxis; SCDs No pharmacologic anticoagulation pending possible procedure Monitor closely and adjust management as needed Follow surgery evaluation recommendations Stable at discharge. Disposition: DC-01 TO HOME OR SELFCARE Time spent for discharge: 32 min Core Measure Documentation - Palliative Care Palliative Care/ Comfort Measures: Not Applicable - Core Measures Any of the following diagnoses?: none Exam - Constitutional Vitals: Temp Pulse Resp BP Pulse Ox 97.1 F L 71 20 149/99 99 10/31/19 07:39 10/31/19 09:55 10/31/19 09:55 10/31/19 07:39 10/31/19 07:39 General appearance: Present: no acute distress, well-nourished, obese - EENT Eyes: Present: PERRL, EOM intact - Neck Neck: Present: supple, normal ROM - Respiratory Respiratory effort: normal Respiratory: negative: rales, rhonchi, wheezing - Cardiovascular Rhythm: regular Heart Sounds: Present: S1 & S2 - Extremities Extremities: no ischemia, No edema - Abdominal General gastrointestinal: Present: soft, non-tender, non-distended, normal bowel sounds - Integumentary Integumentary: Present: clear, warm - Musculoskeletal Musculoskeletal: strength equal bilaterally, generalized weakness - Psychiatric Psychiatric: appropriate mood/affect, cooperative - Neurologic Neurologic: moves all extremities Plan Activity: advance as tolerated Diet: advance as tolerated, other (Full liquid diet) Durable Medical Equipment Needed Upon Discharge: Oxygen Additional Instructions: f/u surgeon in office in 2 weeks. [phone]. call office to followup in 2 weeks. [phone]. you can shower , advance diet as tolerated. no maintenance required for dressings, will fall of on their own. Advised 1 week work excuse from 11/01/2019 -11/07/2019. Check with your primary care physician for further instructions [facility] [Primary Care Provider] - 3-5 Days JIMBO MACEDO MD [Staff Physician] - 14 Days Prescriptions: Docusate Sodium [Colace] 100 mg PO BID PRN #14 capsule PRN Reason: Constipation Simethicone [Gas-X] 62.5 mg PO BID PRN #20 strip PRN Reason: Gas Pain oxyCODONE /ACETAMINOPHEN [Percocet 5/325 mg] 1 tab PO Q8H PRN #6 tablet PRN Reason: Pain, Moderate (4-6)
[2019-10-31] MEDS ORDERED: ONDANSETRON 4 MG ODT TAB PO PRN (16:02)
[2019-10-31 16:17] VITALS: BP 144/91
[2019-10-31] MEDS ORDERED: levoFLOXacin 750 MG TAB PO ONE (17:00)
[2019-11-01] MEDS ORDERED: levoFLOXacin 750 MG TAB PO SCH (12:00)
== END 2019-10-31 18:45 | disposition home or self-care (01) | DRG 342 ==
LOC: ED 22:49 → EDBD 22:49 → 3A 10-30 06:32 → 3B-SURG 10-30 15:53
PROVIDERS: ADMIT Internal Medicine Geriatric Medicine; ATTEND Internal Medicine
PROC: 0DTJ4ZZ Resection of Appendix, Percutaneous Endoscopic Approach (ICD-10-PCS; principal; 2019-10-30)
DX: K35.80 Unspecified acute appendicitis (principal); E87.1 Hypo-osmolality and hyponatremia; J45.909 Unspecified asthma, uncomplicated; K59.00 Constipation, unspecified; E66.9 Obesity, unspecified; Z68.33 Body mass index [BMI] 33.0-33.9, adult; Z88.0 Allergy status to penicillin; Z79.899 Other long term (current) drug therapy; Z82.49 Family history of ischemic heart disease and other diseases of the circulatory system; Z98.51 Tubal ligation status
CPT/HCPCS: 36415; 74177; 80048; 80053; 81001; 83690; 83735; 84703; 85014; 85018; 85025; 87040; 87116; 88304; 94640; 96365; 96366; 96375; 96376; G0378; C9113; J1100; J1170; J1956; J2270; J2405; J2704; J2710; J3010; J7030; J7120; Q0162; Q9967

== ENCOUNTER 2021-01-18 09:19 | Emergency (ER) | payer MEDICAID ==
[2021-01-18 09:43] VITALS: BP 126/86
[2021-01-18] MEDS ORDERED: ACETAMINOPHEN W/CODEINE 300-30 MG TAB PO ONE (09:53)
[2021-01-18] MEDS ORDERED: dexAMETHasone 20 MG/5 ML VIAL IM ONE (09:53)
[2021-01-18] MEDS ORDERED: LIDOCAINE 5% 1 EACH PATCH TD STA (09:55)
--- NOTE | 2021-01-18 09:55 | Emergency Department Report ---
ED Back Pain/Injury HPI - General Chief Complaint: Extremity Injury, Lower Stated Complaint: LOW BACK/HIP PAIN Time Seen by Provider: 01/18/21 09:45 Source: patient Limitations: No Limitations - History of Present Illness Initial Comments: 40 year with pmhx of Chronic low back and Chronic Left hip pain secondary to DDD/DJD presents to ED c/o flare up low back pain. Patient states that she bent over and pulled a tote filled with clothes 3 days ago and when she stood up started with increased low back pain. She states pain has been constant and radiates down into both legs. She states pain is worse with walking, standing up straight, and any movement. She states she has been taking her usual medications (celebrex, meloxicam, toradol, tramadol, tizinadine) without relief. She denies any LE weakness, LE numbness/tingling, saddle anesthesia, bowel or bladder continence. She denies any abd pain, UTI symptoms, chest pain, SOB, fever or chills. She states her Inspector Exhaust Emissions is Dr Srivastava. Complaint: back pain -: Gradual - Related Data Previous Rx's Medication Instructions Recorded Last Taken Type Cyclobenzaprine [Flexeril 10 MG 10 mg PO QHS PRN #10 tablet 05/30/19 Unknown Rx TAB] Docusate Sodium [Colace] 100 mg PO BID PRN #14 capsule 10/31/19 Unknown Rx Simethicone [Gas-X] 62.5 mg PO BID PRN #20 strip 10/31/19 Unknown Rx oxyCODONE /ACETAMINOPHEN [Percocet 1 tab PO Q8H PRN #6 tablet 10/31/19 Unknown Rx 5/325 mg] predniSONE [Deltasone] 20 mg PO QDAY #5 tab 05/14/20 Unknown Rx tiZANidine [Zanaflex 4mg TAB] 4 mg PO BID #30 tablet 05/14/20 Unknown Rx Acetaminophen/Codeine [Tylenol 1 tab PO Q4HR PRN #12 tablet 01/18/21 Unknown Rx /Codeine # 3 tab] Lidocaine [Lidoderm] 1 each TP Q12H #10 adh..patch 01/18/21 Unknown Rx methylPREDNISolone [Medrol 4MG 4 mg PO DAILY #1 tab.ds.pk 01/18/21 Unknown Rx DOSEPAK (21 tabs)] Allergies Allergy/AdvReac Type Severity Reaction Status Date / Time aspirin Allergy Hives Verified 01/18/21 09:39 Penicillins Allergy Hives Verified 01/18/21 09:39 ED Review of Systems ROS: Stated complaint: LOW BACK/HIP PAIN Other details as noted in HPI Comment: All other systems reviewed and negative Respiratory: denies: cough, shortness of breath, wheezing Cardiovascular: denies: chest pain, palpitations Gastrointestinal: denies: abdominal pain, nausea, vomiting, diarrhea Musculoskeletal: back pain Neurological: denies: headache, weakness, paresthesias Psychiatric: denies: anxiety, depression Hematological/Lymphatic: denies: easy bleeding, easy bruising ED Past Medical Hx - Past Medical History Hx Asthma: Yes Additional medical history: Leukemia in remission,cancer survivor LEFT HIP IMPINGEMENT - Surgical History Additional Surgical History: port placed/removed, Tubal Ligation - Social History Smoking Status: Never Smoker Substance Use Type: Alcohol - Medications Home Medications: Home Medications Medication Instructions Recorded Confirmed Last Taken Type Cyclobenzaprine [Flexeril 10 MG 10 mg PO QHS PRN #10 tablet 05/30/19 10/30/19 Unknown Rx TAB] Docusate Sodium [Colace] 100 mg PO BID PRN #14 capsule 10/31/19 Unknown Rx Simethicone [Gas-X] 62.5 mg PO BID PRN #20 strip 10/31/19 Unknown Rx oxyCODONE /ACETAMINOPHEN [Percocet 1 tab PO Q8H PRN #6 tablet 10/31/19 Unknown Rx 5/325 mg] predniSONE [Deltasone] 20 mg PO QDAY #5 tab 05/14/20 Unknown Rx tiZANidine [Zanaflex 4mg TAB] 4 mg PO BID #30 tablet 05/14/20 Unknown Rx Acetaminophen/Codeine [Tylenol 1 tab PO Q4HR PRN #12 tablet 01/18/21 Unknown Rx /Codeine # 3 tab] Lidocaine [Lidoderm] 1 each TP Q12H #10 adh..patch 01/18/21 Unknown Rx methylPREDNISolone [Medrol 4MG 4 mg PO DAILY #1 tab.ds.pk 01/18/21 Unknown Rx DOSEPAK (21 tabs)] ED Physical Exam - General Limitations: No Limitations General appearance: alert, in distress (secondary to pain) - Head Head exam: Present: atraumatic, normocephalic, normal inspection - Eye Eye exam: Present: normal appearance, PERRL, EOMI Pupils: Present: normal accommodation - ENT ENT exam: Present: normal exam, mucous membranes moist - Respiratory Respiratory exam: Present: normal lung sounds bilaterally. Absent: respiratory distress - Cardiovascular Cardiovascular Exam: Present: regular rate, normal rhythm, normal heart sounds - GI/Abdominal GI/Abdominal exam: Present: soft. Absent: distended, tenderness, guarding - Extremities Exam Extremities exam: Present: normal inspection. Absent: pedal edema, calf tenderness - Back Exam Back exam: Present: paraspinal tenderness (bilateral lumbar), vertebral tenderness (mid lumbar ). Absent: full ROM (Moderately decrease spine ROM due to pain ), CVA tenderness (R), CVA tenderness (L), rash noted - Neurological Exam Neurological exam: Present: alert, oriented X3, CN II-XII intact, abnormal gait (Mild limping slow gait but otherwise nl ). Absent: motor sensory deficit - Psychiatric Psychiatric exam: Present: normal affect, normal mood - Skin Skin exam: Present: intact ED Course Vital Signs 01/18/21 09:42 Temperature 98.6 F Pulse Rate 65 Respiratory 18 Rate Blood Pressure 126/86 O2 Sat by Pulse 100 Oximetry ED Medical Decision Making - Medical Decision Making 40 year with pmhx of Chronic low back and Chronic Left hip pain secondary to DDD/DJD presents to ED c/o flare up low back pain. Patient states that she bent over and pulled a tote filled with clothes 3 days ago and when she stood up started with increased low back pain. She states pain has been constant and radiates down into both legs. She states pain is worse with walking, standing up straight, and any movement. She states she has been taking her usual medications (celebrex, meloxicam, toradol, tramadol, tizinadine) without relief. She denies any LE weakness, LE numbness/tingling, saddle anesthesia, bowel or bladder continence. She denies any abd pain, UTI symptoms, chest pain, SOB, fever or chills. She states her Inspector Exhaust Emissions is Dr Srivastava. 1114: Patient reports improvement of her pain after meds. The patient is now resting comfortably and she, is alert, talkative, interactive and in no d istress. The patient is neurologically intact. The patient has no fever, no bowel or bladder incontinence, no saddle anesthesia and is otherwise alert and well-appearing. Her history, physical examination and current condition does not suggest the presence of acute spinal epidural abscess, acute epidural bleed, cauda equina syndrome, abdominal/thoracic aortic aneurysm, aortic dissection or other acute process requiring further testing, treatment or consultation in the emergency department. The vital signs have been stable. The patient condition is stable and appropriate for discharge. The patient will pursue further outpatient evaluation with the primary care physician and or her Inspector Exhaust Emissions. Patient expressed understanding of instructions and agreed with plan. Critical care attestation.: If time is entered above; I have spent that time in minutes in the direct care of this critically ill patient, excluding procedure time. ED Disposition Clinical Impression: Acute exacerbation of chronic low back pain, Lumbar spine strain Disposition: TO HOME OR SELFCARE Is pt being admited?: No Does the pt Need Aspirin: No Condition: Stable Instructions: Lumbosacral Strain Additional Instructions: Take the medrol dose pack, pain patch and the tylenol 3 as prescribed. You can hold off your regular medications for now but you can restart them when you complete the medications given to you today. Follow up with your Inspector Exhaust Emissions this week. Return to ED if worse. Prescriptions: Lidocaine [Lidoderm] 1 each TP Q12H #10 adh..patch methylPREDNISolone [Medrol 4MG DOSEPAK (21 tabs)] 4 mg PO DAILY #1 tab.ds.pk Acetaminophen/Codeine [Tylenol /Codeine # 3 tab] 1 tab PO Q4HR PRN #12 tablet PRN Reason: Pain Referrals: MARIA LEBLANC MD [Primary Care Provider] - 3-5 Days Time of Disposition: 11:10
== END 2021-01-18 11:18 | disposition home or self-care (01) ==
LOC: ED 09:19
DX: S39.012A Strain of muscle, fascia and tendon of lower back, initial encounter (principal); Z98.51 Tubal ligation status; Z98.890 Other specified postprocedural states; Z79.899 Other long term (current) drug therapy; Z88.0 Allergy status to penicillin; Z88.8 Allergy status to other drugs, medicaments and biological substances; X58.XXXA Exposure to other specified factors, initial encounter; Y93.89 Activity, other specified; Y92.89 Other specified places as the place of occurrence of the external cause; Y99.8 Other external cause status
CPT/HCPCS: 96372; 99282; J1100

== ENCOUNTER 2021-03-01 11:44 | Outpatient (CLI) | payer OTHER ==
--- NOTE | 2021-03-01 13:55 | XRay Report ---
BILATERAL KNEES 4 VIEWS INDICATION / CLINICAL INFORMATION: BILATERAL KNEE PAIN. COMPARISON: None available. FINDINGS: Questionable small exostosis in the medial aspect of the proximal tibia. No other significant skeleta l abnormality Signer Name: Shahid Wilburn MD FACR Signed: 03/01/2021 1:50 PM Workstation Name: [id number]
== END 2021-03-01 11:45 | disposition home or self-care (01) ==
LOC: XRAY 11:44
PROVIDERS: ATTEND Internal Medicine
DX: M25.562 Pain in left knee (principal); M25.561 Pain in right knee